=== PATIENT | male | born 1935 | race Caucasian/White ===

== ENCOUNTER 2019-06-18 06:00 | Outpatient (RCR) | payer MEDICARE, MEDICAID, SELFPAY | END 2019-06-22 23:59 | disposition home or self-care (01) | LOC: LAB 06:00 | PROVIDERS: Family Provider Internal Medicine; Visit Provider Nurse Practitioner Family | DX: M62.81 Muscle weakness (generalized) (principal) | CPT/HCPCS: 36415 ×2; 80048 ×2 ==